=== PATIENT | male | born 1970 | race Caucasian/White ===

== ENCOUNTER 2024-04-15 09:27 | Outpatient (CLI) | payer BC | END 2024-04-15 09:28 | disposition home or self-care (01) | LOC: BICCT 09:27 | PROVIDERS: ATTEND Internal Medicine Gastroenterology | DX: K52.9 Noninfective gastroenteritis and colitis, unspecified (principal); R10.9 Unspecified abdominal pain | CPT/HCPCS: 74177; 82565 ==